=== PATIENT | female | born 1995 | race Caucasian/White ===

== ENCOUNTER 2024-12-14 22:47 | Emergency (ER) | payer OTHER, SELFPAY ==
[2024-12-14 22:50] VITALS: BP 114/84
[2024-12-14 23:03] LABS: % Basophils 0.6 % (0-2); % Eosinophils 1.4 % (0-6); % Immature Granulocytes 0.3 % (0-0.5); % Lymphocytes 34.4 % (20.5-51.1); % Monocytes 6.7 % (1.7-9.3); % Neutrophils 56.6 % (42.2-75.2); Absolute Eosinophils 0.1 10^3/uL (0-0.7); Absolute Lymphocytes 2.4 10^3/uL (1.2-3.4); Absolute Monocytes 0.5 10^3/uL (0.1-0.6); Hematocrit 36.9 % (37.0-47.0); Mean Corp Hgb Conc. 35.2 g/dL (33.0-37.0); Mean Corpuscular Hgb 29.8 pg (27.0-31.0); Mean Corpuscular Volume 84.6 fL (81.0-99.0); Mean Platelet Volume 9.5 fL (7.4-10.4); Nucleated Red Blood Cells % 0 %; Platelet Count 265 10^3/uL (130-400); Red Blood Cell Count 4.36 10^6/uL (4.20-5.40); Red Cell Dist. Width 12.2 % (11.5-14.5)
[2024-12-14 23:19] LABS: HCG, Serum Qualitative Screen Negative
[2024-12-14 23:29] LABS: ALT (SGPT) 17 U/L (0-35); AST (SGOT) 22 U/L (14-36); Albumin 4.8 g/dl (3.5-5.0); Alkaline Phosphatase 44 U/L (38-126); Blood Urea Nitrogen 13 mg/dl (7-17); Calcium 9.7 mg/dl (8.4-10.2); Carbon Dioxide 26 mmol/L (22-30); Chloride 107 mmol/L (98-107); Glucose 98 mg/dl (70-99); Potassium 3.9 mmol/L (3.5-5.1); Sodium 143 mmol/L (135-145); Total Bilirubin 0.4 mg/dl (0.2-1.3); Total Protein 7.4 g/dl (6.3-8.2); eGFR > 60.00
[2024-12-14 23:38] LABS: Urine Albumin 1+ (Neg - Trace); Urine Bilirubin Negative (Negative); Urine Character Slightly Cloudy (Clear); Urine Color Yellow; Urine Glucose Negative (Negative); Urine Ketone Negative (Negative); Urine Leukocyte Negative (Negative); Urine Nitrite Negative (Negative); Urine Occult Blood 4+ (Negative); Urine Urobilinogen Negative (Neg - 1+)
[2024-12-15 00:13] LABS: Urine Amorphous Seen; Urine Bacteria Many (Negative); Urine Mucus Moderate; Urine Red Blood Cell >100 /HPF (0-2); Urine Squamous Cell >30 /LPF (Few)
--- NOTE | 2024-12-15 01:28 | ED.GENMED ---
History of Present Illness
General
Chief Complaint: Flank Pain
Source: patient
Exam Limitations: none
Time Seen by Provider: 12/15/24 01:16
History of Present Illness
History of Present Illness:
29yoF with a history of interstitial cystitis presenting for evaluation of 'kidney pain.' Patient reports pain in her left flank over the past two days. She is also having dysuria. She started with nausea today but denies any vomiting. She is
also experiencing chills but denies fever. She has a history of pyelonephritis which she usually gets once a year. She is currently on her menstrual period. No prior history of kidney stones.
Past History
Past History
ED Past Medical History: Psychiatric (Anxiety)
ED Past Surgical History: None
Social History
Tobacco: Non-smoker
Alcohol: None
Drug: None
Personal: Single
Living: with family
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
Family History
Family History: Other (Mother with IBS)
Phy Exam
General Physical Exam
General Presentation: well appearing and no apparent distress
General age: appears stated age
General Skin: warm and dry
General Habitus: normal
General Mental: alert
ENT Exam
ENT Exam: normocephalic
Pulmonary Exam
Pulmonary Exam: no respiratory distress
Gastrointestinal Exam
Gastrointestinal Exam: non tender, soft, non distended and no cva tenderness
Neurological Exam
Neurological Exam: alert
[place] Coma Scale
Eye Opening: Spontaneous
Verbal Response: Oriented
Motor Response: Obeys Commands
GCS Total Score: 15
Skin Exam
Skin Exam: normal color and warm/dry
Psychiatric Exam
Psychiatric Exam: normal mood/affect
Course
Orders/Labs/Results
Orders:
Orders
12/14/24 22:53
Test Result ONCE
12/14/24 22:58
Complete Blood Count/With Diff Urgent
Comprehensive Metabolic Panel Urgent
HCG, Serum Qualitative Screen Urgent
Urinalysis Urgent
Date Specimen was Collected: 12/14/24
Time Specimen was Collected: 22:53
Urine Microscopic Urgent
Date Specimen was Collected: 12/14/24
Time Specimen was Collected: 22:53
12/15/24 01:27
CT Abd/pel Without Iv Or Oral Urgent
Comment:
Reason For Exam: L flank pain
0.9% Sodium Chloride 1000 ml [Nss] 1,000 ml IV BOLUS
12/15/24 01:37
Urinalysis Reflex To Culture Urgent
Date Specimen was Collected: 12/15/24
Time Specimen was Collected: 01:27
Urine Microscopic Reflex Cult Urgent
12/15/24 03:21
Add On - Microbiology Urgent
Tests Added?: urine culture
Abnormal Lab Results
12/14/24 12/15/24
22:58 01:37
Hct 36.9 L %
(37.0-47.0)
Urine Occult Blood 4+ A
(Negative)
Ur Occult Blood Reflex 4+ A
(Negative)
Urine RBC >100 A /HPF 26-30 A /HPF
(0-2) (0-2)
Urine Bacteria Many A
(Negative)
Urine Bacteria (Reflex) Few A
(Negative)
Urine Albumin 1+ A
(Neg - Trace)
12/14/24 22:58
12/14/24 22:58
Vital Signs
Initial and Last Documented VS:
Initial Vital Signs
Temp Pulse Resp BP Pulse Ox
98.1 F 94 20 114/84 98
12/14/24 22:50 12/14/24 22:50 12/14/24 22:50 12/14/24 22:50 12/14/24 22:50
Last Documented Vital Signs
Temp Pulse Resp BP Pulse Ox
98.1 F 78 16 101/57 100
12/14/24 22:50 12/15/24 01:35 12/15/24 01:35 12/15/24 01:35 12/15/24 01:35
MDM/Problems Addressed
Differential Diagnosis Includes:
29yoF here with L flank pain x 2 days. Also c/o dysuria and nausea. No fevers. Hx of interstitial cystitis. VSS. She is well-appearing in no acute distress. No CVA tenderness on exam. Differential diagnosis includes but is not limited to: UTI,
pyelonephritis, kidney stone, musculoskeletal, interstitial cystitis
Initial ED plan: Labs obtained in triage. White count and renal function are normal. UA with 4+ blood. Many bacteria seen on microscopic analysis although there is >30/LPF squamous epithelial cells suggesting contaminated sample. Will recheck UA
and obtain CT abdomen without contrast to evaluate for stone. IV fluid bolus.
*Critical Care Note
Total Time (30-74mins, 75-104mins- exclusive of procedures): Not Applicable
Update Note
Update Note:
Repeat UA again with 4+ blood which is likely due to patient being on her menstrual period. Only few bacteria seen on microscopic analysis on repeat UA. Nitrites and leukocytes negative. Preliminary [facility]ology report for CT is negative for
acute findings. Specifically, there is no hydronephrosis or obstructing stone. Unclear etiology of symptoms. Urine culture added for completeness. Patient recently moved to the area and does not currently have a urologist. She was provided with
contact information for the local urology group. ED return precautions discussed including fevers. Patient in agreement with plan and was discharged in stable condition.
ED Attending Note
-
Portions of this chart may have been created with voice recognition software.� Occasional wrong word or��sound alike� substitutions may have occurred due to the inherent limitations of voice recognition software.
Discharge Plan
Departure
Patient Disposition: Home (Routine Discharge)
Date of Disposition: 12/15/24
Time of Disposition: 03:25
Patient with high blood pressure during this ER visit?: No
Discharge Problem:
Left flank pain
Instructions: Flank Pain (DC)
Prescriptions:
No Action
pantoprazole 40 MG tablet,delayed release (DR/EC)
40 mg PO DAILY Qty: 14 0RF
cefpodoxime 200 mg tablet
200 mg PO BID 10 Days Qty: 20 0RF
Referrals:
Henry Wlater Jr., MD [Active] -
UNKNOWN - PT DOES,NOT KNOW [Family Provider] -
Activity Restrictions/Additional Instructions:
Drink plenty of fluids and stay hydrated. We will call you if your urine culture comes back positive.
I have provided contact information for urology for follow-up. Return to the ER with any new or worsening symptoms including fevers.
Interventions
Interventions:
*Risk Screen - Suicide Last Done: 12/14/24 22:50
*General Assessment Last Done: 12/15/24 01:35
*Neglect/Abuse Screening Last Done: 12/14/24 22:50
*ED- Fall Risk Assessment Last Done: 12/15/24 01:35
*ED COVID-19 Vaccine History Last Done: 12/15/24 01:35
EQ-Xjdtnz-Napogtkyeb Assessment Last Done: 12/15/24 01:40
ED-Female Genitourinary Assessment Last Done: 12/15/24 01:40
Discharge Date and Time
Print Language: POLISH
[2024-12-15] MEDS: NSS 1000 IV (01:33)
[2024-12-15 01:35] VITALS: BP 101/57; BMI 20.7
[2024-12-15 01:47] LABS: Urine Albumin Negative (Neg - Trace); Urine Bilirubin Negative (Negative); Urine Character Clear (Clear); Urine Color Yellow; Urine Glucose Negative (Negative); Urine Ketone Negative (Negative); Urine Leukocyte Negative (Negative); Urine Nitrite Negative (Negative); Urine Occult Blood 4+ (Negative); Urine Specific Gravity 1.015 (<1.030); Urine Urobilinogen Negative (Neg - 1+)
[2024-12-15 02:08] LABS: Urine Red Blood Cell 26-30 /HPF (0-2)
[2024-12-15 02:09] LABS: Urine White Cell 0-2 /HPF (0-5)
[2024-12-15 02:10] LABS: Urine Bacteria Few (Negative)
== END 2024-12-15 03:40 | disposition home or self-care (01) ==
LOC: EMR 22:47
PROVIDERS: Physician Assistant; EMERGENCY PHYSICIAN Emergency Medicine
DX: R10.9 Unspecified abdominal pain (principal); R30.0 Dysuria; Z87.448 Personal history of other diseases of urinary system
CPT/HCPCS: 96360; 99284; 74176; 80053; 81003; 81015; 84703; 85025; 87086

== ENCOUNTER 2025-03-26 22:59 | Emergency (ER) | payer OTHER, SELFPAY ==
[2025-03-26 23:20] VITALS: BP 108/70
[2025-03-26 23:40] VITALS: BMI 21.6
[2025-03-26 23:47] LABS: Hematocrit 35.2 % (37.0-47.0); Hemoglobin 12.1 g/dL (12.0-16.0); Mean Corp Hgb Conc. 34.4 g/dL (33.0-37.0); Mean Corpuscular Volume 85.2 fL (81.0-99.0); Nucleated Red Blood Cells % 0 %; Platelet Count 314 10^3/uL (130-400); Red Cell Dist. Width 11.6 % (11.5-14.5)
[2025-03-27 00:03] LABS: INR 1.02; PT 13.9 Sec (11.4-14.6)
[2025-03-27 00:10] LABS: ALT (SGPT) 18 U/L (0-35); AST (SGOT) 23 U/L (14-36); Albumin 4.7 g/dl (3.5-5.0); Alkaline Phosphatase 38 U/L (38-126); Blood Urea Nitrogen 14 mg/dl (7-17); Calcium 9.8 mg/dl (8.4-10.2); Carbon Dioxide 21 mmol/L (22-30); Chloride 110 mmol/L (98-107); Estimated Creatinine Clearance > 125 ml/min; Glucose 112 mg/dl (70-99); Potassium 4.2 mmol/L (3.5-5.1); Sodium 139 mmol/L (135-145); Total Protein 7.4 g/dl (6.3-8.2); eGFR > 60.00
--- NOTE | 2025-03-27 01:31 | ED.GENMED ---
History of Present Illness
General
Chief Complaint: Chest Pain
Source: patient and significant other
Exam Limitations: none
Time Seen by Provider: 03/27/25 00:52
Nursing documentation reviewed up to this point in time: agreed with
History of Present Illness
History of Present Illness:
see mdm
Past History
Past History
ED Past Medical History: Psychiatric (Anxiety)
ED Past Surgical History: None
Social History
Tobacco: Non-smoker
Alcohol: None
Drug: None
Personal: Single
Living: with family
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
Family History
Family History: Other (Mother with IBS)
Phy Exam
Physical Exam
Physical Exam:
GENERAL: Alert , in mildly anxious, tearful
EYE: pupils equal and reactive
NECK: Supple
ENT: o/p clr, mmm.
CARDIAC: Regular rate and rhythm . No tachycardia, no murmur,
LUNGS: Clear breath sounds bilaterally, no acute respiratory distress, no wheezes/rales/rhonchi
ABDOMEN: Soft, mild to moderate lower abdominal tenderness in the pelvic region, no r/g, no cvat, normal bowel sounds
: Deferred
NEUROLOGICAL: Alert and oriented, no focal neuro deficits
SKIN: Warm and dry, skin intact.
MUSCULOSKELETAL: No edema, well perfused. neg julián's sign
PSYCH: Mildly anxious
Scores
Heart Score for Chest Pain Patients
STEMI patient?: No
History: Slightly or Non-Suspicious
ECG: Normal
Age: </= 45 years
Risk Factors: No Risk Factors
Troponin: </= Normal Limit
Heart Score for Chest Pain Patients: 0
Heart Score Risk: 2.5% MACE over next 6 weeks
Course
Orders/Labs/Results
Orders:
Orders
03/26/25 23:28
ECG [Electrocardiogram (*1)] Urgent
Reason for Study: Chest Pain
EKG- Treatment ONCE
03/26/25 23:38
Beta HCG Quantitative Urgent
Comment: ADD ON
Complete Blood Count/With Diff Urgent
Comprehensive Metabolic Panel Urgent
Creatine Phosphokinase Urgent
Comment: ADD ON
Prothrombin Time Urgent
03/27/25 01:25
Add On- LAB Urgent
Tests Added?: beta quant
CT Abd/Pel (IV only)-DH only Urgent
Comment:
Reason For Exam: ruptured ectopic, surgery 03/15; pain, sob
CT Chest PE Study Urgent
Comment:
Reason For Exam: ruptured ectopic surgery, SOB, pleuritic pain
03/27/25 01:43
Troponin I Urgent
03/27/25 03:54
Add On- LAB Urgent
Comments:: CPK
Tests Added?: CPK
03/27/25 04:24
Alprazolam [Xanax] 0.25 mg PO NOW STA
Ketorolac [Toradol] 15 mg IV NOW STA
Abnormal Lab Results
03/26/25
23:38
RBC 4.13 L 10^6/uL
(4.20-5.40)
Hct 35.2 L %
(37.0-47.0)
Absolute Monos (auto) 0.7 H 10^3/uL
(0.1-0.6)
Chloride 110 H mmol/L
(98-107)
Carbon Dioxide 21 L mmol/L
(22-30)
Glucose 112 H mg/dl
(70-99)
03/26/25 23:38
03/26/25 23:38
Vital Signs
Initial and Last Documented VS:
Initial Vital Signs
Temp Pulse Resp BP Pulse Ox
36.7 C 102 20 108/70 96
03/26/25 23:20 07/09/25 23:20 03/26/25 23:20 03/26/25 23:20 03/26/25 23:20
Last Documented Vital Signs
Temp Pulse Resp BP Pulse Ox
36.7 C 78 18 108/70 98
03/26/25 23:20 03/27/25 05:00 03/27/25 05:00 03/26/25 23:20 03/27/25 03:45
MDM/Problems Addressed
Differential Diagnosis Includes:
see MDM
MDM/Problems Addressed:
Note:
CHIEF COMPLAINT(S)
Post-operative chest pain and shortness of breath following surgery for a ruptured ectopic .
HISTORY OF PRESENT ILLNESS
The patient, a female, presented with chest pain and shortness of breath following a surgical procedure for a ruptured ectopic 03/15. The patient reports the chest pain as sharp at times and constricting at other times, located on the left
side and beneath the rib cage. Additionally, the patient described experiencing difficulty in breathing and persistent pain post-surgery.
The patient recounted a history of an ectopic presenting to emergency care. On February 20, the patient visited an emergency room where a gestational sac was noted in the report but there was no intrauterine evident. A follow-up
visit on February 22 reported fluid in the cul-de-sac with minimal amount, but the gestational sac was still noted. Betas were decreasing, and the patient was discharged. On March 15, the patient was transferred to [place] where the diagnosis of a
ruptured ectopic was confirmed. The patient underwent a right salpingectomy and oophorectomy.
kelley--operatively, the patient reports an allergic reaction characterized by a rash, itching, and difficulty breathing, suggesting an anaphylactic episode. Medication was administered, though specifics were unclear to the patient as records were
unavailable. The patient also experienced marked post-operative pain, which initially required assistance for ambulation. Despite instructions to manage pain with childrens ibuprofen and acetaminophen due to difficulty swallowing pills, the patient
was eventually prescribed a short course of oxycodone for pain control.
EXTERNAL RECORDS REVIEWED
None specifically mentioned within this transcript.
CHRONIC MEDICAL CONDITIONS SIGNIFICANTLY AFFECTING CARE
Hypertension, reportedly in remission and not currently under active treatment.
SOCIAL HISTORY
The patient reported difficulty swallowing pills preferring liquid medications.
REVIEW OF SYSTEMS
- Respiratory: Reports shortness of breath, requiring deep inhalations and yawns to feel relieved.
- Cardiovascular: Sharp and constricting chest pain on the left side.
- Dermatological: Reports a rash with itching following recent surgery, suspected allergic reaction.
- Musculoskeletal: Reports difficulty walking and requiring assistance post-operatively.
PHYSICAL EXAM
- Nursing notes reviewed and vital signs reviewed.
- Oxygen saturation noted to be 100%.
- Patient appeared to feel warm on examination.
PROBLEM LIST
Acute Problems:
1. Chest pain and shortness of breath
2. Post-operative status following right salpingectomy and oophorectomy
3. Suspected anaphylactic reaction post-operatively
Chronic Problems:
1. Hypertension (currently in remission)
PLAN
The plan includes conducting a computed tomography scan of the chest and abdomen to evaluate for possible causes such as pulmonary embolism, pneumothorax secondary to surgical air insufflation, or post-operative fluid accumulation. Blood work and an
electrocardiogram were performed previously and returned normal. Pain management remains ongoing, with further analgesia offered. The patient opted to defer additional pain medication at this time.
DIFFERENTIAL DIAGNOSIS
The Differential Diagnosis includes, in no particular order and is not limited to:
1. Post-operative pneumonia
2. Pulmonary embolism
3. Pneumothorax
4. Chest wall pain
5. Postoperative atelectasis
6. Anaphylactic reaction to medications or anesthesia
7. Costochondritis
8. Air trapped during laparoscopic surgery
9. Hemoperitoneum
10. Pericarditis
03/27/25 - 03:55
The patient underwent a CT scan revealing no clots, pneumonia, fluid, air, or lung puncture. CT of a/p shows mild to mod complex fluid in pelvis
thisi s favored to be blood
i spoke with dr. montez ob/gynlorelei integration technician about this case
she thought that with previous large blood products in abdomen, ,that this was to be expected.
given no fever, normal wbc, do not feel other testing or treatment indicated
Cardiac tests including EKG, cardiac enzymes, hemoglobin, and white blood cell count are normal, indicating no severe infection. However, CT of the abdomen shows mild to moderate complex fluid in the pelvis, likely blood, rather than infection,
which is expected to resolve in weeks. The patients beta hCG dropped from 2,200 to 18, indicating improvement post-heterotopic management. Despite normal cardiac markers, chest pain persists and is recommended to be managed with ibuprofen
for inflammation. Anxiety might contribute to symptoms; patient is encouraged to consult a telehealth doctor to discuss anxiety management. Concerns about mobility persist due to pelvic and thigh pain, described as tingling and weakness, requiring
assistance to walk.
pt was able to walk for me
she is steady
her legs are not weak
she has normal cpk
normal 3+ reflexes
do not think this is GBS
d/w ed attenidng
will d/c home
highly encourage outpatient gf/u with melissa ob/gynlorelei
*Pulse Oximetry
SaO2: 96
Patient hypoxic: no (98)
*Critical Care Note
Total Time (30-74mins, 75-104mins- exclusive of procedures): Not Applicable
ED Attending Note
-
Portions of this chart may have been created with voice recognition software.� Occasional wrong word or��sound alike� substitutions may have occurred due to the inherent limitations of voice recognition software.
Discharge Plan
Departure
Patient Disposition: Home (Routine Discharge)
Date of Disposition: 03/27/25
Time of Disposition: 05:07
Patient with high blood pressure during this ER visit?: No
Condition: Fair
Covid-19: Not Applicable
Discharge Problem:
Free fluid in pelvis, Post-operative pain, Dyspnea
Instructions: Managing pain after surgery, Shortness of breath in adults - ED discharge instructions
Prescriptions:
No Action
pantoprazole 40 MG tablet,delayed release (DR/EC)
40 mg PO DAILY Qty: 14 0RF
cefpodoxime 200 mg tablet
200 mg PO BID 10 Days Qty: 20 0RF
Referrals:
UNKNOWN - PT DOES,NOT KNOW [Family Provider]
Activity Restrictions/Additional Instructions:
It is very important that you call your EMERGENCY DEPARTMENT PHYSICIAN today regarding your need for another emergency visit. Your workup here was reassuring, your blood work shows that your beta-hCG is down trended to 18, hemoglobin stable at 12, you have normal white
blood cell count, normal cardiac enzyme, normal EKG.
your cat scan of your lungs was clear
there was no sign of blood clot or pneumonia or fluid
you had fluid in your pelvis which is resolving from your previous ectopic that ruptured
this is something that takes time to resolve. take motrin 600 mg every 8hours (3 times a day) for 3-4 days
return for fever, vomiting, severe pain, severe shortness of breath
otherwise you need to follow up with the ob/gyne
Interventions
Interventions:
*Risk Screen - Suicide Last Done: 03/26/25 23:20
*General Assessment Last Done: 03/26/25 23:40
*Neglect/Abuse Screening Last Done: 03/26/25 23:20
*ED- Fall Risk Assessment Last Done: 03/26/25 23:40
*ED COVID-19 Vaccine History Last Done: 03/26/25 23:40
*Nursing Disposition Last Done: 03/27/25 05:21
ED- Cardiac Assessment Last Done: 03/26/25 23:40
ED-Female Genitourinary Assessment Last Done: 03/26/25 23:40
Discharge Date and Time
Discharge Date/Time: 03/27/25 05:23
Print Language: HEBREW
[2025-03-27 02:19] LABS: Troponin I < 0.012 ng/ml
[2025-03-27 02:47] LABS: Beta HCG Quantitative 18.33 mIU/ml
[2025-03-27] MEDS: XANAX 0.25 MG PO (04:33)
[2025-03-27] MEDS: TORADOL 15 MG IV (04:34)
== END 2025-03-27 05:23 | disposition home or self-care (01) ==
LOC: EMR 22:59
PROVIDERS: Emergency Medicine; Physician Assistant; EMERGENCY PHYSICIAN Emergency Medicine
DX: G89.18 Other acute postprocedural pain (principal); R19.00 Intra-abdominal and pelvic swelling, mass and lump, unspecified site; R06.00 Dyspnea, unspecified; R07.89 Other chest pain; I10 Essential (primary) hypertension; Z83.79 Family history of other diseases of the digestive system; Z90.721 Acquired absence of ovaries, unilateral
CPT/HCPCS: 99284; 96374; 71275; 74177; 80053; 82550; 84484; 84702; 85025; 85610; 93005; Q9967

== ENCOUNTER 2025-04-15 22:49 | Emergency (ER) | payer OTHER, SELFPAY ==
[2025-04-15 22:56] VITALS: BP 138/107
[2025-04-15 23:12] LABS: Hematocrit 37.7 % (37.0-47.0); Hemoglobin 13.0 g/dL (12.0-16.0); Mean Corp Hgb Conc. 34.5 g/dL (33.0-37.0); Mean Corpuscular Volume 83.4 fL (81.0-99.0); Nucleated Red Blood Cells % 0 %; Platelet Count 290 10^3/uL (130-400); Red Cell Dist. Width 11.9 % (11.5-14.5)
[2025-04-15 23:35] LABS: Blood Urea Nitrogen 13 mg/dl (7-17); Calcium 9.7 mg/dl (8.4-10.2); Carbon Dioxide 24 mmol/L (22-30); Chloride 108 mmol/L (98-107); Glucose 120 mg/dl (70-99); Potassium 3.9 mmol/L (3.5-5.1); Sodium 139 mmol/L (135-145); eGFR > 60.00
[2025-04-15 23:53] LABS: HCG, Serum Qualitative Screen Negative
[2025-04-16] MEDS: NSS 1000 IV (00:18)
--- NOTE | 2025-04-16 03:04 | ED.GENMED ---
History of Present Illness
General
Chief Complaint: Post Operative Problem(s)
Time Seen by Provider: 04/15/25 23:25
Past History
Past History
ED Past Medical History: Psychiatric (Anxiety)
ED Past Surgical History: None
Social History
Tobacco: Non-smoker
Alcohol: None
Drug: None
Personal: Single
Living: with family
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
Family History
Family History: Other (Mother with IBS)
Course
Orders/Labs/Results
Orders:
Orders
04/15/25 23:03
Type+Screen Urgent
BMP [Basic Metabolic Panel] Urgent
Complete Blood Count/With Diff Urgent
HCG, Serum Qualitative Screen Urgent
Comment: ADD ON
04/15/25 23:15
Add On- LAB Urgent
Tests Added?: hcg, serum qual
04/15/25 23:26
ABO2 Urgent
iyzicoK Wristband Number:
Associate notified that ABO2 has been ordered: [id number]
Date: 04/15/25
Time: 23:14
Medical Equipment Repairer ID: [id number]
04/15/25 23:36
0.9% Sodium Chloride 1000 ml [Nss] 1,000 ml IV BOLUS
04/16/25
CT Abd/Pel (IV only)-DH only Urgent
Reason For Exam: Lower abdominal pain. Recent fallopian tube remov
04/16/25 00:00
US 1st Trimester Urgent
Reason For Exam: Lower abdominal pain/recent ectopic/miscarriage
04/16/25 03:15
Ketorolac [Toradol] 15 mg IV NOW STA
Abnormal Lab Results
04/15/25
23:03
Chloride 108 H mmol/L
(98-107)
Glucose 120 H mg/dl
(70-99)
04/15/25 23:03
07/29/25 23:03
Vital Signs
Initial and Last Documented VS:
Initial Vital Signs
Temp Pulse Resp BP Pulse Ox
98 F 99 18 138/107 98
04/15/25 22:56 04/15/25 22:56 04/15/25 22:56 04/15/25 22:56 04/15/25 22:56
Last Documented Vital Signs
Temp Pulse Resp BP Pulse Ox
98 F 99 18 138/107 98
04/15/25 22:56 04/15/25 22:56 04/15/25 22:56 04/15/25 22:56 04/16/25 03:04
*Radiology
Radiology exam reviewed: radiology read reviewed (Small amount of hyperdense fluid. Ovaries and adnexa within normal limits)
*Pulse Oximetry
SaO2: 98
Oxygen Mode of Delivery: Room air
Update Note
Update Note:
Patient did not tolerate ultrasound and was upset at the technical support consultant. She has been having this ongoing pain for a month. States the pain was worse today however. And of course, currently worse after the attempted ultrasound. She however
remains clinically stable and nontoxic. I did convince her to take a dose of Toradol. At this time I see no need for admission. Nothing to support an infectious issue or acute surgical issue. I did stress she needs to follow-up closely with her
EVAPORATOR. Only other consideration at this time would be whether they would want to go back and do a diagnostic laparoscopy. However again not emergent at this time
ED Attending Note
-
Portions of this chart may have been created with voice recognition software.� Occasional wrong word or��sound alike� substitutions may have occurred due to the inherent limitations of voice recognition software.
Discharge Plan
Departure
Patient Disposition: Home (Routine Discharge)
Date of Disposition: 04/16/25
Time of Disposition: 03:22
Patient with high blood pressure during this ER visit?: Yes
Discharge Problem:
Pelvic pain, Recent ectopic/miscarriage
Instructions: Postoperative Pain (DC), Pelvic pain - ED discharge instructions
Prescriptions:
No Action
pantoprazole 40 MG tablet,delayed release (DR/EC)
40 mg PO DAILY Qty: 14 0RF
cefpodoxime 200 mg tablet
200 mg PO BID 10 Days Qty: 20 0RF
Referrals:
UNKNOWN - PT DOES,NOT KNOW [Family Provider]
Activity Restrictions/Additional Instructions:
I recommend calling your EVAPORATOR that did the procedure first thing in the morning for close follow-up
As we discussed, get checked immediately with increasing pain fever worsening vaginal bleeding or any other concerning symptoms
Interventions
Interventions:
*Risk Screen - Suicide Last Done: 04/15/25 22:56
*General Assessment Last Done: 04/15/25 22:56
*ED- Fall Risk Assessment Last Done: 04/15/25 22:56
*ED COVID-19 Vaccine History Last Done: 04/15/25 23:29
ED-Skin Assessment Last Done: 04/16/25 01:08
Discharge Date and Time
Print Language: FAROESE
[2025-04-16] MEDS: TORADOL 15 MG IV (03:19)
[2025-04-16 03:20] VITALS: BP 107/75
[2025-04-16 03:56] VITALS: BP 109/75
== END 2025-04-16 04:01 | disposition home or self-care (01) ==
LOC: EMR 22:49
PROVIDERS: EMERGENCY PHYSICIAN Emergency Medicine
DX: R10.2 Pelvic and perineal pain (principal)
CPT/HCPCS: 99284; 96374; 96361; 74177; 80048; 84703; 85025; 86850; 86900; 86901; Q9967

== ENCOUNTER 2025-08-12 22:08 | Emergency (ER) | payer OTHER, SELFPAY ==
[2025-08-12 22:10] VITALS: BP 124/78
[2025-08-12 22:24] LABS: Hematocrit 41.7 % (37.0-47.0); Hemoglobin 14.0 g/dL (12.0-16.0); Mean Corp Hgb Conc. 33.6 g/dL (33.0-37.0); Mean Corpuscular Volume 83.9 fL (81.0-99.0); Nucleated Red Blood Cells % 0 %; Platelet Count 297 10^3/uL (130-400); Red Cell Dist. Width 13.5 % (11.5-14.5)
[2025-08-12 22:41] LABS: ALT (SGPT) 15 U/L (0-35); AST (SGOT) 21 U/L (14-36); Albumin 4.8 g/dl (3.5-5.0); Alkaline Phosphatase 36 U/L (38-126); Blood Urea Nitrogen 10 mg/dl (7-17); Calcium 9.7 mg/dl (8.4-10.2); Carbon Dioxide 25 mmol/L (22-30); Chloride 105 mmol/L (98-107); Glucose 125 mg/dl (70-99); Potassium 3.9 mmol/L (3.5-5.1); Sodium 136 mmol/L (135-145); Total Protein 7.9 g/dl (6.3-8.2); eGFR > 60.00
[2025-08-12 22:47] VITALS: BMI 21.6
[2025-08-12 22:48] VITALS: BP 132/53
[2025-08-12 23:23] LABS: Beta HCG Quantitative 171.07 mIU/ml
--- NOTE | 2025-08-13 00:22 | ED.GENMED ---
History of Present Illness
General
Chief Complaint: Problems
Source: patient
Exam Limitations: none
Time Seen by Provider: 08/13/25 00:06
Nursing documentation reviewed up to this point in time: agreed with
History of Present Illness
History of Present Illness:
This is a 30-year-old G2, P0 female with a past medical history of ectopic 5 months ago, presents to the ER today with concerns of pelvic pain for the past 2 days. She denies any vaginal bleeding or vaginal discharge. Of note, she feels
that the pain is similar to when she had ectopic for months ago however she states at that point, she had a lot of bleeding. Because of that prior ectopic 5 months ago, she had a right salpingectomy at [facility]. Her INSTRUCTIONAL SUPPORT SERVICES DIRECTOR is
associated with [facility] and she has appointment later today. She denies any lightheadedness, dizziness, syncopal episodes. She has not had any chest pain or shortness of breath. No fevers or chills. Her last regular menstrual period was June 19.
She reports that she is due for her next period around early July but she only had 1 day of bleeding and not a true full period. She tested positive for with a at home test 2 weeks ago.
Past History
Past History
ED Past Medical History: Psychiatric (Anxiety)
ED Past Surgical History: Gynecological
Social History
Tobacco: Non-smoker
Alcohol: None
Drug: None
Personal: Single
Living: with family
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
Family History
Family History: Other (Mother with IBS)
Review of Systems
Review of Systems
All Other Systems: ROS reviewed and negative except as documented in HPI and ROS
Phy Exam
Physical Exam
Physical Exam:
7General: Patient is well appearing and in no acute distress; non-toxic
Skin: Warm and dry, no rashes or lesions
Head: Normocephalic, atraumatic
Eyes: Sclera non-icteric. EOMs intact.
Cardiac: Regular rate and rhythm, no murmurs
Peripheral Vascular: No lower extremity swelling or edema
Pulm: Normal respiratory effort, no wheezes, rales, or rhonchi
Abdomen: Mild tenderness to palpation in the left lower adbominal quadrant, no palpable masses
Neuro: CN II-XII intact, no focal neurologic deficits.
Psychiatric: Appropriate mood and affect.
Course
Orders/Labs/Results
Orders:
Orders
08/12/25 22:17
Beta HCG Quantitative Urgent
Is this a screen?: No
CBC/With Diff [Complete Blood Count/With Diff] Urgent
CMP [Comprehensive Metabolic Panel] Urgent
08/12/25 22:44
Add On- LAB Stat
Comments:: beta hcg quantitative
Tests Added?: beta hcg quantitative to CMP (gold top)
08/13/25 00:17
Urinalysis Reflex To Culture Urgent
Date Specimen was Collected: 08/13/25
Time Specimen was Collected: 00:04
08/13/25 00:50
US W Transvaginal Urgent
Reason For Exam: pelvic pain
Abnormal Lab Results
08/12/25
22:17
Glucose 125 H mg/dl
(70-99)
Alkaline Phosphatase 36 L U/L
(38-126)
08/12/25 22:17
08/12/25 22:17
Vital Signs
Initial and Last Documented VS:
Initial Vital Signs
Temp Pulse Resp BP Pulse Ox
98.2 F 99 15 124/78 98
08/12/25 22:10 08/12/25 22:10 08/12/25 22:10 08/12/25 22:10 08/12/25 22:10
Last Documented Vital Signs
Temp Pulse Resp BP Pulse Ox
98.2 F 90 16 105/72 97
08/12/25 22:10 08/13/25 03:21 08/13/25 03:21 08/13/25 03:21 08/13/25 03:21
Information
Weeks gestation: N/A
Location: N/A
MDM/Problems Addressed
Differential Diagnosis Includes:
ddx include early intrauterine , missed , ectopic , UTI, etc.
MDM/Problems Addressed:
CHART REVIEW
Reviewed ER visit from 04/16/2025 patient had unremarkable workup for pelvic pain, had CT scan which showed small volume of fluid in the pelvis but no masses
MDM/DISPOSITION
30-year-old female with past medical history of ectopic presents to ER today with concerns of pelvic pain for the past 2 days. She had a positive at-home test 2 weeks ago. Has not yet seen a medical provider for this. Physical
exam, she is well-appearing no acute distress. Afebrile. Nontoxic-appearing. Minimal tenderness on exam the left lower quadrant with no palpable masses. Labs reviewed, no leukocytosis noted. Her urinalysis is not concerning for infection. Of
note, beta-hCG 171.
Her ultrasound shows no intrauterine with unremarkable right ovary however left ovary cannot be visualized. No suspicious adnexal masses are seen. Small amount of free fluid. Findings are consistent with of unknown location
however differentials include early intrauterine or failed . Discussed case with ED attending and INSTRUCTIONAL SUPPORT SERVICES DIRECTOR cobol application developer who reviewed ultrasound images and recommended close follow-up with serial hCGs.Patient was given CD and copy of her
ultrasound report and stressed to keep her OB appointment for later today in follow-up. Patient expressed understanding. Patient education provided on return precautions. Patient stable for discharge.
Patient is blood type A+and patient is not bleeding so Rhogam not indiciated.
*Pulse Oximetry
SaO2: 98
Oxygen Mode of Delivery: Room air
Patient hypoxic: no
*Critical Care Note
Total Time (30-74mins, 75-104mins- exclusive of procedures): Not Applicable
ED Attending Note
-
Portions of this chart may have been created with voice recognition software.� Occasional wrong word or��sound alike� substitutions may have occurred due to the inherent limitations of voice recognition software.
Discharge Plan
Departure
Patient Disposition: Home (Routine Discharge)
Date of Disposition: 08/13/25
Time of Disposition: 03:00
Patient with high blood pressure during this ER visit?: Yes
Condition: Good
Discharge Problem:
Pelvic pain, , status unknown
Instructions: symptoms, BLOOD PRESSURE
Prescriptions:
No Action
pantoprazole 40 MG tablet,delayed release (DR/EC)
40 mg PO DAILY Qty: 14 0RF
cefpodoxime 200 mg tablet
200 mg PO BID 10 Days Qty: 20 0RF
Referrals:
NONE,* [Family Provider, Internal Medicine]
Activity Restrictions/Additional Instructions:
You will require serial HCGs.
Please follow up with your OBGYN later today.
PLEASE RETURN TO THE ER SHOULD YOU DEVELOP FEVERS OR CHILLS, INCREASING PAIN, LIGHTHEADEDNESS, DIZZINESS, CHEST PAIN, SHORTNESS OF BREATH, OR ANY OTHER SIGNS CONCERNING TO YOU.
Interventions
Interventions:
*Risk Screen - Suicide Last Done: 08/12/25 22:10
*General Assessment Last Done: 08/12/25 22:10
*Neglect/Abuse Screening Last Done: 08/12/25 22:10
*ED- Fall Risk Assessment Last Done: 08/13/25 02:09
*ED COVID-19 Vaccine History Last Done: 08/12/25 22:10
*ED Influenza Vaccine History Last Done: 08/12/25 22:10
*Nursing Disposition Last Done: 08/13/25 03:21
ED-Female Genitourinary Assessment Last Done: 08/12/25 23:30
Discharge Date and Time
Discharge Date/Time: 08/13/25 03:22
Print Language: GREENLANDIC
[2025-08-13 00:34] LABS: Urine Character Clear (Clear)
[2025-08-13 00:45] VITALS: BP 131/75
[2025-08-13 02:00] VITALS: BP 108/69
[2025-08-13 03:21] VITALS: BP 105/72
== END 2025-08-13 03:22 | disposition home or self-care (01) ==
LOC: EMR 22:08
PROVIDERS: Emergency Medicine; EMERGENCY PHYSICIAN Student in an Organized Health Care Education/Training Program
DX: O26.899 Other specified pregnancy related conditions, unspecified trimester (principal); R10.22 Pelvic and perineal pain left side; Z32.00 Encounter for pregnancy test, result unknown; Z87.59 Personal history of other complications of pregnancy, childbirth and the puerperium; Z3A.00 Weeks of gestation of pregnancy not specified
CPT/HCPCS: 99283; 76801; 76817; 80053; 81003; 84702; 85025

== ENCOUNTER 2025-08-18 17:53 | Emergency (ER) | payer OTHER, SELFPAY ==
[2025-08-18 17:56] VITALS: BP 123/86
[2025-08-18 18:12] LABS: Hematocrit 41.2 % (37.0-47.0); Hemoglobin 14.1 g/dL (12.0-16.0); Mean Corp Hgb Conc. 34.2 g/dL (33.0-37.0); Mean Corpuscular Volume 82.4 fL (81.0-99.0); Nucleated Red Blood Cells % 0 %; Platelet Count 288 10^3/uL (130-400); Red Cell Dist. Width 13.3 % (11.5-14.5)
[2025-08-18 18:33] LABS: HCG, Serum Qualitative Screen Positive
[2025-08-18 18:44] LABS: Beta HCG Quantitative 34.39 mIU/ml
[2025-08-18 18:55] LABS: ALT (SGPT) 19 U/L (0-35); AST (SGOT) 23 U/L (14-36); Albumin 5.0 g/dl (3.5-5.0); Alkaline Phosphatase 45 U/L (38-126); Blood Urea Nitrogen 11 mg/dl (7-17); Calcium 9.0 mg/dl (8.4-10.2); Carbon Dioxide 24 mmol/L (22-30); Glucose 92 mg/dl (70-99); Total Protein 8.4 g/dl (6.3-8.2); eGFR > 60.00
--- NOTE | 2025-08-18 19:34 | ED.GENMED ---
History of Present Illness
General
Chief Complaint: Vaginal Bleeding
Source: patient
Exam Limitations: none
Time Seen by Provider: 08/18/25 19:12
Nursing documentation reviewed up to this point in time: agreed with
History of Present Illness
History of Present Illness:
Patient is a 30-year-old female at an estimated 4 weeks gestation who presents to the emergency department for evaluation of vaginal bleeding. Patient states that yesterday she noticed very mild spotting although today had an obvious increase
in vaginal bleeding. She reports passing a few clots. She did feel somewhat lightheaded at home however did not have any episodes of syncope. She denies any abdominal or pelvic pain/cramping. She denies any fevers. No nausea/vomiting.
Patient was seen in the emergency department approximately 1 week ago for pelvic cramping. At that time�she had an hCG level of 171.07. There was no intrauterine or extrauterine gestation identified on ultrasound at that time.
She has since followed up with her MATH AND PHYSICS INSTRUCTOR, [facility]'s MATH AND PHYSICS INSTRUCTOR with serial hCG levels. Her most recent hCG was drawn 3 days ago and had decreased to 88. She is scheduled for additional hCG level this coming week. She has her first appointment
scheduled for 09/04.
Of note�patient had a ruptured ectopic resulting in right salpingectomy in February 2025
Patient is blood type A+.
Past History
Past History
ED Past Medical History: Psychiatric (Anxiety)
ED Past Surgical History: Gynecological
Social History
Tobacco: Non-smoker
Alcohol: None
Drug: None
Personal: Single
Living: with family
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
Family History
Family History: Other (Mother with IBS)
Review of Systems
Review of Systems
Allergies reviewed?: Yes
All Other Systems: ROS reviewed and negative except as documented in HPI and ROS
Phy Exam
Physical Exam
Physical Exam:
Vitals: Patient's vital signs are stable. Afebrile
General: Patient is well appearing, somewhat anxious
Skin: Warm and dry, no rashes or lesions
Head: Normocephalic, atraumatic
Eyes: Sclera nonicteric.
Throat: Protecting airway
Neck: Normal ROM, no cervical spine tenderness, no meningismus
Cardiac: Regular rate and rhythm.
Pulm: Normal respiratory effort
Abdomen: Abdomen soft and nontender.
Pelvic: External genitalia normal appearing without lesions, ulcerations, or adenopathy. Vaginal vault without lesions or ulcerations. Mild amount of dark red bleeding noted in vault without any visualized clots.
Extremities: No evidence of cyanosis or edema
Neuro: AAOx3. Grossly intact
Psychiatric: Normal affect.
Course
Orders/Labs/Results
Orders:
Orders
08/18/25 17:59
Test Result ONCE
08/18/25 18:04
Complete Blood Count/With Diff Urgent
Comprehensive Metabolic Panel Urgent
HCG, Beta Quantitative [Beta HCG Quantitative] Urgent
Is this a screen?: No
HCG, Serum Qualitative Screen Urgent
08/18/25 19:26
1st Trimester US [US 1st Trimester] Urgent
Comment: hx ruptured ectopic w/ right salpingectomy
Reason For Exam: bleeding
Abnormal Lab Results
08/18/25
18:04
Total Protein 8.4 H g/dl
(6.3-8.2)
08/18/25 18:04
08/18/25 18:04
Vital Signs
Initial and Last Documented VS:
Initial Vital Signs
Temp Pulse Resp BP Pulse Ox
98.0 F 89 20 123/86 99
08/18/25 17:56 08/18/25 17:56 08/18/25 17:56 08/18/25 17:56 08/18/25 17:56
Last Documented Vital Signs
Temp Pulse Resp BP Pulse Ox
98.0 F 88 18 103/72 100
08/18/25 17:56 08/18/25 19:54 08/18/25 19:54 08/18/25 19:50 08/18/25 19:51
MDM/Problems Addressed
Differential Diagnosis Includes:
Not limited to: Threatened , missed , subchorionic hemorrhage, ectopic , etc.
MDM/Problems Addressed:
30 year-old female with history significant for right sided ruptured ectopic and salpingectomy presenting with vaginal bleeding, which began today. Seen in ED approximately one week ago with lower pelvic cramping and found to have
relatively low HGG of 171 without any evidence of intrauterine or extrauterine on US. HCG levels have been trended with her OBGYN at [facility] since discharge from ED and are declining. She has no pain today.
Patient is hemodynamically stable. On arrival, she appears somewhat anxious however otherwise in no distress. Benign abdominal exam. On speculum exam, there is a mild amount of blood noted in vaginal vault without any obvious clots.
Patients labs are stable. Hemoglobin is normal at 14.1. Chemistry unremarkable. HCG today of 34.39, decreased from 88 three days prior.
Ultrasound does not reveal any intrauterine/extrauterine gestation or other abnormal findings.
Findings likely represent miscarriage, however unable to completely rule out ectopic . I did discuss with the patient�s MATH AND PHYSICS INSTRUCTOR at [facility], who agrees that this is likely representing a miscarriage given decreasing hCG values. They
recommend discharge home at this point with continued hCG trending outpatient. They placed an order for repeat hcg in 1 week. Strict return precautions discussed. Patient is comfortable with plan.
Patient is blood type A+ � Rhogam not indicated
Chronic conditions affecting care:
History of ruptured ectopic
Acute Exacerbation and/or Progression of Chronic Illness:
N/A
*Radiology
Radiology exam reviewed: radiology read reviewed
*Pulse Oximetry
SaO2: 99
Oxygen Mode of Delivery: Room air
Patient hypoxic: no
*EKG
Interpreted by ED Provider?: NA
*Rental Car Porter Interpretation
Rate: Rental Car Porter- N/A
*Critical Care Note
Total Time (30-74mins, 75-104mins- exclusive of procedures): Not Applicable
Data Reviewed
Review of Other/Old Records Reveals: Labs (Reviewed hCG lab from 08/13/2025 171.07), Radiology Studies (Reviewed pelvic ultrasound from 08/13/2025) and Discharge Summary (ED discharge summary from 08/13/2025)
Source: previous hospital records
Patient Management
Discussion with other providers: Aircraft Ordnance Technician (Discussed with patient's MATH AND PHYSICS INSTRUCTOR at [facility])
ED Attending Note
-
Portions of this chart may have been created with voice recognition software.� Occasional wrong word or��sound alike� substitutions may have occurred due to the inherent limitations of voice recognition software.
Discharge Plan
Departure
Patient Disposition: Home (Routine Discharge)
Date of Disposition: 08/18/25
Time of Disposition: 22:33
Patient with high blood pressure during this ER visit?: No
Condition: Good
Covid-19: Not Applicable
Discharge Problem:
Vaginal bleeding
Instructions: Miscarriage (DC)
Prescriptions:
No Action
pantoprazole 40 MG tablet,delayed release (DR/EC)
40 mg PO DAILY Qty: 14 0RF
cefpodoxime 200 mg tablet
200 mg PO BID 10 Days Qty: 20 0RF
Referrals:
Your OBGYN [Other] - Follow up in 5-7 days
UNKNOWN - PT DOES,NOT KNOW [Family Provider]
Activity Restrictions/Additional Instructions:
RETURN TO THE EMERGENCY DEPARTMENT WITH ANY PERSISTENT/HEAVY VAGINAL BLEEDING, PASSING LARGE CLOTS, SEVERE LOWER ABDOMINAL PAIN/CRAMPING, LIGHTHEADEDNESS/DIZZINESS OR EPISODES OF FAINTING, WORSENING IN CURRENT SYMPTOMS, OR ANY OTHER CONCERNS
- As discussed your hemoglobin was stable today in the emergency department. Your hCG level was 34.39. Your ultrasound showed no evidence of a intrauterine or extrauterine .
- Unfortunately, I suspect that your symptoms likely represent a miscarriage. However�prior continued lab work with your MATH AND PHYSICS INSTRUCTOR to trend hCG values to ensure that there is no evidence of ectopic .
- Follow-up with MATH AND PHYSICS INSTRUCTOR for repeat lab work in 1 week. Contact the office tomorrow for further scheduling
Monitor your symptoms closely and return to the emergency department with any acute worsening/new symptoms or any other concerns
Interventions
Interventions:
*Risk Screen - Suicide Last Done: 08/18/25 19:44
*General Assessment Last Done: 08/18/25 17:56
*Neglect/Abuse Screening Last Done: 08/18/25 19:44
*ED COVID-19 Vaccine History Last Done: 08/18/25 19:44
*ED Influenza Vaccine History Last Done: 08/18/25 19:44
[facility] Fall Risk Assessment Tool Last Done: 08/18/25 19:44
*Nursing Disposition Last Done: 08/18/25 22:40
ED-Female Genitourinary Assessment Last Done: 08/18/25 19:44
Discharge Date and Time
Discharge Date/Time: 08/18/25 22:41
Print Language: MONGOLIAN
[2025-08-18 19:42] LABS: Chloride 106 mmol/L (98-107); Potassium 3.8 mmol/L (3.5-5.1); Sodium 138 mmol/L (135-145)
[2025-08-18 19:44] VITALS: BMI 20.9
[2025-08-18 19:50] VITALS: BP 103/72
== END 2025-08-18 22:41 | disposition home or self-care (01) ==
LOC: EMR 17:53
PROVIDERS: Emergency Medicine; EMERGENCY PHYSICIAN Emergency Medicine
DX: O20.9 Hemorrhage in early pregnancy, unspecified (principal); Z3A.01 Less than 8 weeks gestation of pregnancy
CPT/HCPCS: 99284; 76801; 80053; 84702; 84703; 85025